=== PATIENT | male | born 1975 | race Caucasian/White ===

== ENCOUNTER 2024-03-08 07:19 | Day surgery (SDC) | payer OTHER ==
[2024-03-08] MEDS ORDERED: METRONIDAZOLE/SODIUM CHLORIDE 500 MG/100 ML PIGGYBACK IV ONE (08:41)
[2024-03-08] MEDS ORDERED: CEFTRIAXONE SODIUM 2,000 MG VIAL ONE (08:41)
[2024-03-08] MEDS ORDERED: HEMOSTATIC MATRIX 1 KIT KIT TOP ONE (08:45)
[2024-03-08] MEDS ORDERED: BUPIVACAINE LIPOSOME/PF 266 MG/20 ML VIAL IJ ONE ×2 (09:00→09:04)
[2024-03-08] MEDS ORDERED: POVIDONE-IODINE 118 ML BOTT TOP ONE (09:00)
[2024-03-08] MEDS ORDERED: DIBUCAINE 30 GM TUBE RECTAL ONE (09:00)
[2024-03-08] MEDS ORDERED: OXYC1TAB9 PO (12:39)
[2024-03-08] MEDS ORDERED: TAMSULOSIN HCL 0.4 MG CAP PO ONE ×2 (12:45→12:56)
[2024-03-08] MEDS ORDERED: MORPHINE SULFATE 4 MG/ML VIAL IV ONE ×2 (13:15→14:00)
== END 2024-03-08 17:10 | disposition home or self-care (01) ==
LOC: CIR.AMB 07:19
PROVIDERS: ATTEND Surgery
DX: K64.2 Third degree hemorrhoids (principal); K64.4 Residual hemorrhoidal skin tags; K62.89 Other specified diseases of anus and rectum; K62.5 Hemorrhage of anus and rectum; K64.5 Perianal venous thrombosis; F41.9 Anxiety disorder, unspecified; K60.3 Anal fistula

== ENCOUNTER 2024-06-14 05:18 | Day surgery (SDC) | payer OTHER ==
[2024-06-07 13:44] VITALS: BP 144/93
[~2024-06-14] VITALS: Ht 175.3 cm; Wt 88.5 kg
[~2024-06-14 05:18] MED LIST: OXYC1TAB9 PO; TAMS0.4C PO
[2024-06-14] MEDS ORDERED: METRONIDAZOLE/SODIUM CHLORIDE 500 MG/100 ML PIGGYBACK IV ONE (08:15)
[2024-06-14] MEDS ORDERED: POVIDONE-IODINE 118 ML BOTT TOP ONE (08:15)
[2024-06-14] MEDS ORDERED: LIDOCAINE HCL 1%/EPINEPHRINE 20ML VIAL IJ ONE (08:15)
[2024-06-14] MEDS ORDERED: HEMOSTATIC MATRIX 1 KIT KIT TOP ONE (08:15)
[2024-06-14] MEDS ORDERED: CEFTRIAXONE SODIUM 2,000 MG VIAL IV ONE (08:15)
[2024-06-14] MEDS ORDERED: BUPIVACAINE HCL 30 ML VIAL IJ ONE (08:15)
[2024-06-14] MEDS ORDERED: DIBUCAINE 15 GM OINT..GM. TUBE RECTAL ONE (08:15)
[2024-06-14] MEDS ORDERED: TAMSULOSIN HCL 0.4 MG CAP PO ONE (12:15)
[2024-06-14] MEDS ORDERED: OXYCODONE HCL5 MG PO (12:18)
== END 2024-06-14 13:20 | disposition home or self-care (01) ==
LOC: CIR.AMB 05:18
PROVIDERS: ATTEND Surgery
DX: K60.30 Anal fistula, unspecified (principal); K62.89 Other specified diseases of anus and rectum; K64.2 Third degree hemorrhoids

== ENCOUNTER 2024-08-18 08:21 | Emergency (ER) | payer OTHER ==
[~2024-08-18] VITALS: Ht 175.3 cm; Wt 90.7 kg
[~2024-08-18 08:21] MED LIST changes: +OXYCODONE HCL5 MG PO
[2024-08-18] MEDS ORDERED: FAMOtidine 10 MG/ML (4ML VIAL) IV PUSH ONE (08:45)
[2024-08-18] MEDS ORDERED: KETOROLAC TROMETHAMINE 30 MG VIAL IU ONE (08:45)
[2024-08-18] MEDS ORDERED: KETOROLAC TROMETHAMINE 30 MG VIAL ONE (08:55)
[2024-08-18] MEDS ORDERED: FAMOTIDINE/PF 20 MG/2 ML VIAL ONE (08:56)
[2024-08-18 09:23] LABS: HEMATOCRIT 45.9 % (39.0-48.0); HEMOGLOBIN 15.7 g/dL (13-16.00); MEAN CELL VOLUME 91.5 fL (80.0-100.00); MEAN CORPUSCULAR HEMOGLOBIN 31.2 pg (27.00-32.0); MEAN CORPUSCULAR HGB CONC 34.2 g/dl (32.0-36.0); PLATELET COUNT 239 K/uL (150-450); RED BLOOD COUNT 5.01 M/uL (4.00-6.00); RED CELL DISTRIBUTION WIDTH 13.1 % (11.5-14.5)
[2024-08-18 09:47] LABS: INR 0.94; PARTIAL THROMBOPLASTIN TIME 26.8 SECONDS (22.0-34.0); PROTHROMBIN TIME 10.3 SECONDS (9.0-11.5)
[2024-08-18 09:51] LABS: ALBUMIN 3.8 gm/dL (3.4-5.0); BILIRUBIN TOTAL 0.35 mg/dL (0.3-1.2); CALCIUM 9.1 mg/dL (8.5-10.1); CREATININE SERUM 0.78 mg/dL (0.70-1.30); GFR 105.79; GLOBULINA 3.4 G/DL (2.4-3.5); POTASSIUM 4.4 mEq/L (3.5-5.1); TOTAL PROTEIN 7.2 gm/dL (6.4-8.2)
[2024-08-18 10:37] LABS: PH,URINE 7.5 (5.0-8.0); URINE APPEARANCE Cloudy; URINE BILIRRUBIN Negative (NEGATIVE); URINE BLOOD Negative; URINE COLOR Yellow; URINE GLUCOSE Negative (NEGATIVE); URINE KETONE Negative (NEGATIVE); URINE LEUKOCYTE Negative; URINE NITRATE Negative; URINE PROTEIN Negative (NEGATIVE); URINE UROBILINOGEN 0.2 E.U./dl
[2024-08-18 10:48] LABS: URINE BACTERIA 3.6 uL (0.0-1933); URINE EPITHELIAL CELLS 0.4 uL (0.0-38.8); URINE RBC 1.7 uL (0.0-20.8); URINE WBC 1.2 uL (0.0-23.2)
[2024-08-18] MEDS ORDERED: CIPRO500 MG PO (10:53)
[2024-08-18] MEDS ORDERED: METRONIDAZOLE500 MG PO (10:53)
[2024-08-18] MEDS ORDERED: DICY20TA PO (10:53)
[2024-08-18] MEDS ORDERED: PROBIOTIC1 EAC2 PO (10:53)
[2024-08-18] MEDS ORDERED: ZOFRAN8 MG PO (10:53)
[2024-08-18] MEDS ORDERED: PEPCID AC20 MG PO (10:53)
== END 2024-08-18 10:59 | disposition home or self-care (01) ==
LOC: ER 08:24
PROVIDERS: General Practice
DX: R10.32 Left lower quadrant pain (principal); N40.0 Benign prostatic hyperplasia without lower urinary tract symptoms; K57.32 Diverticulitis of large intestine without perforation or abscess without bleeding